=== PATIENT | male | born 1985 | race African-American/Black ===

== ENCOUNTER 2023-07-03 13:26 | Emergency (ER) | payer OTHER ==
[2023-07-03 13:33] VITALS: BP 113/71; PULSE 86; RESP 18; TEMP 101.6; BMI 25.1
[2023-07-03] MEDS ORDERED: ALBUTEROL SO4 2.5/IPRATROPIUM 0.5 INH SOL 3 ML VIAL.NEB. NEB ONE ×2 (14:20→14:31)
[2023-07-03] MEDS ORDERED: DEXAMETHASONE SOD PHOSPHATE 10 MG/1 ML VIAL IM ONE (14:20)
[2023-07-03] MEDS ORDERED: DEXAMETHASONE SOD PHOSPHATE 10 MG/1 ML VIAL ONE (14:31)
[2023-07-03] MEDS ORDERED: ACETAMINOPHEN 325 MG TABLET (FP) PO ONE (16:30)
== END 2023-07-03 17:45 | disposition home or self-care (01) ==
LOC: JER 13:26
PROC: 3E023GC Introduction of Other Therapeutic Substance into Muscle, Percutaneous Approach (ICD-10-PCS; principal; 2023-07-03)
PROC: 3E0F7GC Introduction of Other Therapeutic Substance into Respiratory Tract, Via Natural or Artificial Opening (ICD-10-PCS; 2023-07-03)
DX: J45.901 Unspecified asthma with (acute) exacerbation (principal); R06.02 Shortness of breath; R05.9 Cough, unspecified; U07.1 COVID-19
CPT/HCPCS: 0241U-QW; 71046-TC-FY; J1100

== ENCOUNTER 2023-11-01 10:40 | Observation (INO) | payer OTHER ==
[2023-11-01] MEDS ORDERED: ALBUTEROL SO4 2.5/IPRATROPIUM 0.5 INH SOL 3 ML VIAL.NEB. NEB ONE (10:53)
[2023-11-01] MEDS ORDERED: DEXAMETHASONE SOD PHOSPHATE 10 MG/1 ML VIAL ONE (10:54)
[2023-11-01] MEDS: DEXAMETHASONE SOD PHOSPHATE 10 MG/1 ML VIAL IVPUSH ONE (11:05)
[2023-11-01] MEDS: ALBUTEROL SO4 2.5/IPRATROPIUM 0.5 INH SOL 3 ML VIAL.NEB. NEB SCH (11:05)
[2023-11-01 11:23] VITALS: BMI 19.2
[2023-11-01] MEDS ORDERED: ALBUTEROL SO4 0.083% IH SOL 2.5 MG/3 ML VIAL.NEB. NEB ONE ×5 (11:58→16:23)
[2023-11-01] MEDS ORDERED: MAGNESIUM SULFATE IN WATER 2 GM/50 ML IVPB IVPB ONE (11:59)
[2023-11-01] MEDS: ALBUTEROL SO4 0.083% IH SOL 2.5 MG/3 ML VIAL.NEB. NEB SCH ×3 (12:03→16:25)
[2023-11-01] MEDS: MAGNESIUM SULFATE IN WATER 2 GM/50 ML IVPB IVPB ONE (12:03)
[2023-11-01 12:47] LABS: BASO % 0.7 % (0-2.0); EOS % 17.6 % (0-4.5); HEMATOCRIT 48.3 % (35.4-49); HEMOGLOBIN 16.8 GM/dL (11.7-16.9); LYMPH % 27.7 % (8-40); MCH 32.5 pg (25.7-33.7); MCHC 34.7 g/dl (32.0-35.9); MEAN CELL VOLUME 93.6 fl (80-96); MEAN PLT VOLUME 8.4 fl (7.5-11.1); MONO % 12.3 % (3.8-10.2); NEUT % 41.7 % (42.8-82.8); PLATELET COUNT 208 10^3/uL (134-434); RBC 5.16 M/mm3 (4.00-5.60); RDW 13.8 % (11.9-15.9)
[2023-11-01 12:54] LABS: ARTERIAL BLD GAS O2 SATURATION 93.1 % (95-98); ARTERIAL BLOOD GAS BASE EXCESS 0.6 mmol/L (-2-2); ARTERIAL BLOOD GAS PO2 66.1 mmHg (80-100); ARTERIAL BLOOD GAS pH 7.399 (7.350-7.450)
[2023-11-01] MEDS ORDERED: TERBUTALINE SULFATE 1 MG/1 ML VIAL SQ ONE (13:07)
[2023-11-01] MEDS: TERBUTALINE SULFATE 1 MG/1 ML VIAL SQ ONE (13:13)
[2023-11-01] MEDS: EPINEPHrine 1:1,000 0.3 MG/0.3 ML SYR IM ONE (13:14)
[2023-11-01 13:30] LABS: POTASSIUM 4.8 mmol/L (3.5-5.1)
[2023-11-01 13:32] LABS: BLOOD UREA NITROGEN 9.1 mg/dL (7-18); CALCIUM 9.1 mg/dL (8.5-10.1)
[2023-11-01 13:33] LABS: ALBUMIN 4.3 g/dl (3.4-5.0)
[2023-11-01 13:36] LABS: CREATININE 1.1 mg/dL (0.55-1.3)
[2023-11-01 13:37] LABS: BILIRUBIN,TOTAL 0.5 mg/dL (0.2-1)
[2023-11-01] MEDS ORDERED: ALBUTEROL SO4 0.083% IH SOL 2.5 MG/3 ML VIAL.NEB. NEB PRN (14:04)
[2023-11-01 18:02] VITALS: RESP 18
[2023-11-02] MEDS ORDERED: MELATONIN 5 MG TABLETS PO PRN (03:40)
[2023-11-02] MEDS: methylPREDNISolone NA SUCC 40 MG/1 ML VIAL IVPUSH SCH (08:00)
[2023-11-02 08:36] LABS: BASO % 0.3 % (0-2.0); EOS % 0.7 % (0-4.5); HEMATOCRIT 42.4 % (35.4-49); HEMOGLOBIN 14.9 GM/dL (11.7-16.9); LYMPH % 14.4 % (8-40); MCH 32.6 pg (25.7-33.7); MEAN CELL VOLUME 93.2 fl (80-96); MEAN PLT VOLUME 8.1 fl (7.5-11.1); MONO % 12.8 % (3.8-10.2); NEUT % 71.8 % (42.8-82.8); PLATELET COUNT 185 10^3/uL (134-434); RBC 4.55 M/mm3 (4.00-5.60); WHITE BLOOD COUNT 8.5 K/mm3 (4.0-10.0)
[2023-11-02 08:46] LABS: POTASSIUM 3.8 mmol/L (3.5-5.1)
[2023-11-02 08:48] LABS: BLOOD UREA NITROGEN 11.7 mg/dL (7-18); CALCIUM 8.8 mg/dL (8.5-10.1)
[2023-11-02 08:51] LABS: CREATININE 1.1 mg/dL (0.55-1.3)
[2023-11-02 10:38] VITALS: BP 123/86; PULSE 82; TEMP 98
== END 2023-11-02 15:00 | disposition home or self-care (01) ==
LOC: JER 10:40 → JERBED 13:36 → J6S 17:55
PROVIDERS: ADMIT Internal Medicine; ATTEND Internal Medicine
PROC: 3E0F7GC Introduction of Other Therapeutic Substance into Respiratory Tract, Via Natural or Artificial Opening (ICD-10-PCS; principal; 2023-11-01)
PROC: 3E033GC Introduction of Other Therapeutic Substance into Peripheral Vein, Percutaneous Approach (ICD-10-PCS; 2023-11-01)
PROC: 3E023GC Introduction of Other Therapeutic Substance into Muscle, Percutaneous Approach (ICD-10-PCS; 2023-11-01)
PROC: 3E023GC Introduction of Other Therapeutic Substance into Muscle, Percutaneous Approach (ICD-10-PCS; 2023-11-01)
DX: J45.21 Mild intermittent asthma with (acute) exacerbation (principal); G35 Multiple sclerosis; F12.90 Cannabis use, unspecified, uncomplicated; F41.8 Other specified anxiety disorders; F17.200 Nicotine dependence, unspecified, uncomplicated
CPT/HCPCS: 0241U-QW; 36415; 36600; 71045-TC-FY; 80048; 80053; 82803; 85025; 93005; 93010; 94640; 96365; 96367; 96372; 96375; 99285-25; G0378; J1100